=== PATIENT | male | born 1995 | race Caucasian/White ===

== ENCOUNTER 2020-07-27 13:37 | Emergency (ER) | payer SELFPAY ==
[2020-07-27] MEDS ORDERED: TORAdol 30 mg Injection IM ONE (14:10)
[2020-07-27] MEDS ORDERED: TORAdol 30 mg Injection ONE (14:17)
[2020-07-27 14:57] LABS: ANION GAP 11.2 MEQ/L (5-15); BLOOD UREA NITROGEN 9 mg/dL (9-20); CHLORIDE 105 mmol/L (98-107); Calcium 9.7 mg/dL (8.4-10.2); Carbon Dioxide 26 mmol/L (22-30); Creatinine 1 1.07 mg/dL (0.66-1.25); EST GLOMERULAR FILTRATION RATE > 60.0 ML/MIN; Glucose 102 mg/dL (74-106); Potassium 4.7 mmol/L (3.5-5.1); SODIUM 138 mmol/L (137-145); Uric Acid 10.1 mg/dL (3.5-7.2)
--- NOTE | 2020-07-27 15:33 | ERPHSYRPT ---
- History of Present Illness Time Seen by Provider: 07/27/20 14:00 Source: patient Exam Limitations: no limitations Patient Subjective Stated Complaint: Pt stated that he woke up about 4 days ago with pain to the right ankle but denies injury, pain has progressed daily Triage Nursing Assessment: Pt brought to the ER by his friend, hypertensive, jonathan enies injury to foot, hx of gout, rates pain 7/10, swelling to right top of foot, doesn't appear to be in any distress Physician History: 25 years old male with history of gout presented in the ER with chief complaint of right ankle and foot pain for the last 4 days. Patient report he woke up with pain which is progressively worsening associated with increasing swelling especially on the dorsum of foot. Pain is aggravated with ambulation and partial relief with getting off weight. Denies any fall or trauma. No fever or chills reported. Allergies/Adverse Reactions: No Known Drug Allergies Allergy (Verified 07/27/20 14:09) Hx Influenza Vaccination/Date Given: No Travel Risk - International Travel Have you traveled outside of the country in past 3 weeks: No - Coronavirus Screening Are you exhibiting any of the following symptoms?: No Close contact with a COVID-19 positive Pt in past 14-21 Days: No - Review of Systems Constitutional: No Symptoms Eyes: No Symptoms Ears, Nose, & Throat: No Symptoms Respiratory: No Symptoms Cardiac: No Symptoms Abdominal/Gastrointestinal: No Symptoms Musculoskeletal: Joint Pain, Joint Swelling Skin: No Symptoms Neurological: No Symptoms Psychological: No Symptoms Endocrine: No Symptoms - Past Medical History Pertinent Past Medical History: Yes Other Medical History: Meningitis as young child-unknown age or bacterial vs viral, gout - Past Surgical History Past Surgical History: No - Social History Smoking Status: Current some day smoker Exposure to second hand smoke: Yes Drug Use: none Patient Lives Alone: No (lives wtih friends, smoker) - Nursing Vital Signs Nursing Vital Signs: Initial Vital Signs Temperature 98.2 F 07/27/20 14:02 Pulse Rate 86 07/27/20 14:02 Blood Pressure 152/86 07/27/20 14:02 O2 Sat by Pulse Oximetry 96 07/27/20 14:02 Pain Scale Pain Intensity 7 - Physical Exam General Appearance: no apparent distress, alert Eyes, Ears, Nose, Throat Exam: normal ENT inspection Neck Exam: normal inspection, supple, full range of motion Cardiovascular/Respiratory Exam: normal breath sounds, regular rate/rhythm Legs Exam: bilateral leg: non-tender, normal inspection, normal range of motion Knees Exam: bilateral knee: non-tender, normal inspection, normal range of motion Ankle Exam: right ankle: swelling (Anterior ankle/foot), left ankle: normal inspection, bilateral ankle: non-tender, normal range of motion Foot Exam: right foot: bone tenderness (Proximal dorsal foot), pain, soft tissue tenderness, swelling, left foot: non-tender, normal inspection, normal range of motion, no evidence of injury Neuro/Tendon Exam: normal sensation, normal motor functions Mental Status Exam: alert, oriented x 3, cooperative Skin Exam: normal color SpO2 Interpretation: normal SpO2: 96 O2 Delivery: Room Air - Course Nursing assessment & vital signs reviewed: Yes Ordered Tests: Active Orders 24 hr Category Date Time Status FOOT (MINIMUM 3 VIEWS) Stat Exams 07/27/20 14:32 Taken BMP Stat Lab 07/27/20 14:30 Completed Uric Acid Stat Lab 07/27/20 14:30 Completed Medication Summary Discontinued Medications Generic Name Dose Route Start Last Admin Trade Name Spencer PRN Reason Stop Dose Admin Ketorolac Tromethamine 30 mg 07/27/20 14:10 07/27/20 14:18 Toradol 30 Mg Injection IM 07/27/20 14:11 30 mg STAT ONE Administration Ketorolac Tromethamine Confirm 07/27/20 14:17 Toradol 30 Mg Injection Administered 07/27/20 14:18 Dose 30 mg .ROUTE .[employer]-MED ONE Lab/Rad Data: Laboratory Result Diagrams 07/27/20 14:30 Laboratory Results 07/27/20 Range/Units 14:30 Sodium 138 (137-145) mmol/L Potassium 4.7 (3.5-5.1) mmol/L Chloride 105 (98-107) mmol/L Carbon Dioxide 26 (22-30) mmol/L Anion Gap 11.2 (5-15) MEQ/L BUN 9 (9-20) mg/dL Creatinine 1.07 (0.66-1.25) mg/dL Estimated GFR > 60.0 ML/MIN Glucose 102 (74-106) mg/dL Uric Acid 10.1 H (3.5-7.2) mg/dL Calcium 9.7 (8.4-10.2) mg/dL - Progress Progress: improved, pain not gone completely Progress Note: 07/27/20 15:57 Is given Toradol for symptomatic relief, on reevaluation feeling better. Has elevated uric acid level more than 10. X-rays negative for any fracture dislocation. I believe patient has gouty arthritis flareup. We will start him on indomethacin along with supportive care Counseled pt/family regarding: lab results, diagnosis, need for follow-up, rad results - Departure Departure Disposition: Home Clinical Impression: Gouty arthritis of right foot Condition: Stable Critical Care Time: No Referrals: DOCTOR,NO FAMILY [Primary Care Provider] - LUCI BAKER [ACTIVE STAFF] - Follow Up with PCP/3 days Instructions: Gout (DC), Low Purine Diet Additional Instructions: As tolerated. Take indomethacin for pain relief. Keep it elevated. Follow-up with your primary care physician for reevaluation. Return to ER for any worsening. Prescriptions: Indomethacin 25 mg [Indocin 25 MG] 50 mg PO TID 10 Days #60 capsule
[2020-07-27 15:42] VITALS: BP 162/99; PULSE 88
[2020-07-27 15:58] VITALS: O2SAT 96
--- NOTE | 2020-07-31 08:40 | XRAY ---
Indication: Pain. Comparison: None 3 nonweightbearing views right foot obtained. No bony, articular, or soft tissue abnormalities.
== END 2020-07-27 16:10 | disposition home or self-care (01) ==
LOC: ED 13:37
DX: M10.9 Gout, unspecified (principal)
CPT/HCPCS: 36415; 73630; 80048; 84550; 96372; 99284; J1885